=== PATIENT | male | born 1960 | race Caucasian/White ===

== ENCOUNTER → 2018-05-29 | Outpatient (CLI) | payer OTHER ==
--- NOTE | 2018-05-29 11:59 | RADIOLOGY IMAGING REPORT ---
FACILITY: [facility] PATIENT NAME: Talon Delvalle : 1960 MR: [id number] V: [id number] EXAM DATE: ORDERING PHYSICIAN: TIFF MAURO TECHNOLOGIST: Location: [facility] Patient: Talon Delvalle : 1960 Visit/Account:[id number] Date of Sevice: 05/29/2018 HEAD W/O CONTRAST Indication: Posttraumatic headache patient fell and hit head this morning Comparison: None. Technique: Noncontrast head CT vertex to the skull base obtained. One of the following dose optimizat ion techniques was utilized in the performance of this exam: automated exposure control; adjustment o f the mA and/or kV according to the patient's size; or use of an iterative reconstruction technique. Specific details can be referenced in the facility's radiology CT exam operational policy. Findings: Brain: Tovar-white matter differentiation and cortex are maintained. Ventricles and sulci:Ventricles and sulci are symmetric in size. There is no abnormal extra-axial flu id collection or mass. Paranasal sinuses: There is small amount of fluid in the left maxillary sinus. Calvarium: There is a laceration involving the right-sided scalp, with skin meagan identified. There is no evidence of fracture in the bones of the calvarium and skull base. Orbits and soft tissues: Right and left globes and soft tissues of the head are normal. Impression: 1. No evidence of acute infarct hemorrhage mass or fracture. 2. Right-sided scalp laceration with skin meagan identified. 3. Small amount of fluid in the left maxillary sinus. Differential diagnosis includes sinusitis or in flammation. There is no evidence of adjacent fracture to suggest this is blood. This was called by Dr. Patrick to TIFF MAURO on 05/29/2018 11:46 AM Report Dictated By: Gordy Patrick at 05/29/2018 11:46 AM Report E-Signed By: Gordy Patrick at 05/29/2018 11:54 AM WSN:[id number]
== END ==
LOC: CT 10:57
PROVIDERS: ATTEND Family Medicine
DX: G44.309 Post-traumatic headache, unspecified, not intractable (principal)
CPT/HCPCS: 70450

== ENCOUNTER → 2018-05-29 | Outpatient (REF) | payer OTHER ==
[2018-05-29 10:44] LABS: PLATELET COUNT, AUTOMATED 233 K/uL (150-450)
== END ==
PROVIDERS: ATTEND Family Medicine
DX: R55 Syncope and collapse (principal)
CPT/HCPCS: 82040; 82247; 82310; 82374; 82435; 82565; 82947; 84075; 84132; 84155; 84295; 84450; 84460; 84520; 85025